=== PATIENT | male | born 1995 | race Caucasian/White ===

== ENCOUNTER 2019-02-02 16:35 | Emergency (ER) | payer BC ==
[~2019-02-02] VITALS: Ht 177.8 cm; Wt 95.3 kg
[2019-02-02 16:40] VITALS: BP 122/75
--- NOTE | 2019-02-02 17:13 | PHYS DOC ---
Past Medical History Past Medical History: No Pertinent History Past Surgical History: Appendectomy Additional Past Surgical Histo: R testicle removal, partial L testicle removal Alcohol Use: Rarely Drug Use: Marijuana Adult General Chief Complaint Chief Complaint: ABDOMINAL PAIN HPI HPI Patient is a 23 year old male who presents with Thursday began having left sided abdominal pain that went from the left side and wraps around to the lower left abdomen. Patient states it was sharp and shooting. Patient states that he still has some slight discomfort but the pain is not nearly as bad but states that the pain has moved more into the lower left abdomen now. Patient states today he began having blood in his urine with burning with urination today. Review of Systems Review of Systems Constitutional: Denies fever or chills [] GI:left sided abdominal pain, denies nausea, vomiting, bloody stools or diarrhea [] : dysuria and hematuria [] Musculoskeletal: Left back pain or joint pain [] Neurologic: Denies headache, focal weakness or sensory changes [] All other systems were reviewed and found to be within normal limits, except as documented in this note. Current Medications Current Medications Current Medications Medications (Trade) Dose Ordered Sig/Marshall Start Time Stop Time Status Last Admin Dose Admin Ketorolac Tromethamine (Toradol 30mg Vial) 30 mg 1X ONCE 02/02/19 18:00 02/02/19 18:01 DC 02/02/19 18:03 30 MG Sodium Chloride 1,000 ml @ 1,000 mls/hr Q1H 02/02/19 18:00 02/02/19 18:59 02/02/19 18:03 1,000 MLS/HR Allergies Allergies Allergies Coded Allergies Type Severity Reaction Last Updated Verified No Known Drug Allergies 02/02/19 No Physical Exam Physical Exam Constitutional: Well developed, well nourished, no acute distress, non-toxic appearance. [] Abdomen: Bowel sounds normal, soft, Left lower tenderness, no masses, no pulsatile masses. [] Skin: Warm, dry, no erythema, no rash. [] Back: No tenderness, no CVA tenderness. [] Neurologic: Alert and oriented X 3, normal motor function, normal sensory function, no focal deficits noted. [] Psychologic: Affect normal, judgement normal, mood normal. [] Current Patient Data Vital Signs Vital Signs Date Time Temp Pulse Resp B/P (MAP) Pulse Ox O2 Delivery O2 Flow Rate FiO2 9/11/19 16:40 98.5 76 16 122/75 (91) 96 Room Air 98.5 Lab Values Laboratory Tests Test 02/02/19 16:41 02/02/19 17:44 Urine Collection Type Unknown Urine Color Brown Urine Clarity Cloudy Urine pH Urine Specific [place] Urine Protein mg/dL (NEG-TRACE) Urine Glucose (UA) mg/dL (NEG) Urine Ketones (Stick) mg/dL (NEG) Urine Blood (NEG) Urine Nitrite (NEG) Urine Bilirubin (NEG) Urine Urobilinogen Dipstick mg/dL (0.2 mg/dL) Urine Leukocyte Esterase (NEG) Urine RBC Tntc /HPF (0-2) Urine WBC Occ /HPF (0-4) Urine Squamous Epithelial Cells None /LPF Urine Bacteria Few /HPF (0-FEW) Urine Mucus Marked /LPF White Blood Count 6.9 x10^3/uL (4.0-11.0) Red Blood Count 4.76 x10^6/uL (4.30-5.70) Hemoglobin 15.1 g/dL (13.0-17.5) Hematocrit 42.6 % (39.0-53.0) Mean Corpuscular Volume 90 fL (79-100) Mean Corpuscular Hemoglobin 32 pg (25-35) Mean Corpuscular Hemoglobin Concent 35 g/dL (31-37) Red Cell Distribution Width 12.5 % (11.5-14.5) Platelet Count 305 x10^3/uL (140-400) Neutrophils (%) (Auto) 62 % (31-73) Lymphocytes (%) (Auto) 27 % (24-48) Monocytes (%) (Auto) 8 % (0-9) Eosinophils (%) (Auto) 3 % (0-3) Basophils (%) (Auto) 1 % (0-3) Neutrophils # (Auto) 4.3 x10^3/uL (1.8-7.7) Lymphocytes # (Auto) 1.8 x10^3/uL (1.0-4.8) Monocytes # (Auto) 0.5 x10^3/uL (0.0-1.1) Eosinophils # (Auto) 0.2 x10^3/uL (0.0-0.7) Basophils # (Auto) 0.0 x10^3/uL (0.0-0.2) Sodium Level 143 mmol/L (136-145) Potassium Level 3.6 mmol/L (3.5-5.1) Chloride Level 106 mmol/L (98-107) Carbon Dioxide Level 26 mmol/L (21-32) Anion Gap 11 (6-14) Blood Urea Nitrogen 13 mg/dL (8-26) Creatinine 1.1 mg/dL (0.7-1.3) Estimated GFR (Cockcroft-Gault) 83.0 BUN/Creatinine Ratio 12 (6-20) Glucose Level 81 mg/dL (70-99) Calcium Level 8.9 mg/dL (8.5-10.1) Total Bilirubin 0.8 mg/dL (0.2-1.0) Aspartate Amino Transferase (AST) 30 U/L (15-37) Alanine Aminotransferase (ALT) 22 U/L (16-63) Alkaline Phosphatase 59 U/L (46-116) Total Protein 7.3 g/dL (6.4-8.2) Albumin 4.3 g/dL (3.4-5.0) Albumin/Globulin Ratio 1.4 (1.0-1.7) Laboratory Tests 02/02/19 17:44 Laboratory Tests 02/02/19 17:44 EKG EKG [] Radiology/Procedures Radiology/Procedures [] Impressions: [facility] [address] [place] [address] IMAGING REPORT Signed PATIENT: DAMON GODOY CACCOUNT: [id number] : 1995 LOCATION: ER AGE: 23 SEX: M EXAM STATUS: REG ER ORD. PHYSICIAN: PANCHITO TUCKER SENIOR HEALTH EDUCATOR REASON: left flank, side pain, hematuria PROCEDURE: CT ABDOMEN PELVIS WO CONTRAST Exam: CT abdomen and pelvis without contrast INDICATION: Left-sided flank pain TECHNIQUE: Sequential axial images through the abdomen and pelvis obtained without IV contrast. Sagittal and coronal reformatted images were reconstructed from the axial data and reviewed. Comparisons: None FINDINGS: Heart size is normal. No pericardial effusion. Visualized lung bases are clear. No pleural effusion. Evaluation of solid organs is limited secondary to noncontrast technique. Liver, spleen, pancreas, gallbladder and adrenals are unremarkable. There is mild left-sided hydronephrosis. There is a 5 mm calculus at the distal left ureter. No other renal or ureteral calculi are identified. Bladder is decompressed not well evaluated. Prostate is not enlarged. Large and small bowel are unremarkable. Appendix is not identified. No free intra-abdominal air or fluid. No obstruction. Abdominal aorta has a normal course and caliber. No enlarged abdominal lymph nodes are identified. No suspicious osseous lesion or acute fracture. IMPRESSION: A 5 mm calculus the distal left ureter with mild left-sided hydronephrosis. No other renal or ureteral calculi. Exposure: One or more of the following in the visualized dose reduction techniques were utilized for this examination: 1. Automated exposure control 2. Adjustment of the MA and/or KV according to patient size 3. Use of iterative of reconstructive technique Electronically signed by: Alie Gonsales MD (02/02/2019 6:08 PM) [facility] DICTATED and SIGNED BY: ALIE GONSALES MD DATE: 02/02/191807 Course & Med Decision Making Course & Med Decision Making Patient is a 23 year old male who presents with Thursday began having left sided abdominal pain that went from the left side and wraps around to the lower left abdomen. Patient states it was sharp and shooting. Patient states that he still has some slight discomfort but the pain is not nearly as bad but states that the pain has moved more into the lower left abdomen now. Patient states today he began having blood in his urine with burning with urination today. Abdomen is tender to left lower side. Alert and oriented. No CVA tenderness. No extremity edema. Skin pink warm and dry. Patient denies vomiting, diarrhea, fever, penile discharge, flank pain, testicular pain, nausea, shortness of air, chest pain, headache, dizziness. Ambulatory with a steady gait. Mucous membranes moist. CT ABD PELV: A 5 mm calculus the distal left ureter with mild left-sided hydronephrosis. No other renal or ureteral calculi. I have spoken to Dr Chatterjee about this patient. He states that this kidney stone may still pass and talk tot he patient about pain control. UA does not look to be infected and Dr Chatterjee agrees. Patient to follow up with Urology as soon as possible. Dragon Disclaimer Dragon Disclaimer This electronic medical record was generated, in whole or in part, using a voice recognition dictation system. Departure Departure Impression: Primary Impression: Kidney stone Disposition: 01 HOME, SELF-CARE Condition: STABLE Referrals: NO PCP (PCP) LEONARD SHIN MD Patient Instructions: Kidney Stones Additional Instructions: Call urology and follow up with urology as soon as possible. Take medications as prescribed. If you are unable to urinate and or the pain becomes too great return to the emergency room immediately. Scripts Oxycodone/Apap 5-325 (PERCOCET 5-325 MG TABLET ) 1 Each Tablet 1 TAB PO PRN Q6HRS PRN for PAIN, #12 TAB 0 Refills Prov: PANCHITO TUCKER APRN 02/02/19 Tamsulosin Hcl (FLOMAX) 0.4 Mg Cap.er.24h 1 CAP PO DAILY, #30 CAP 11 Refills Prov: PANCHITO TUCKER APRN 02/02/19 PANCHITO TUCKER APRN Feb 02, 2019 17:13
[2019-02-02 17:28] LABS: CLARITY,URINE CLOUDY
[2019-02-02 17:53] LABS: BASO % 1 % (0-3); EOS # 0.2 x10^3/uL (0.0-0.7); EOS % 3 % (0-3); HEMATOCRIT 42.6 % (39.0-53.0); HEMOGLOBIN 15.1 g/dL (13.0-17.5); LYMPH # 1.8 x10^3/uL (1.0-4.8); LYMPH % 27 % (24-48); MEAN CORPUSCULAR HEMOGLOBIN 32 pg (25-35); MEAN CORPUSCULAR HGB CONC 35 g/dL (31-37); MEAN CORPUSCULAR VOLUME 90 fL (79-100); MONO # 0.5 x10^3/uL (0.0-1.1); MONO % 8 % (0-9); NEUT # 4.3 x10^3/uL (1.8-7.7); NEUT % 62 % (31-73); PLATELET COUNT 305 x10^3/uL (140-400); RED BLOOD COUNT 4.76 x10^6/uL (4.30-5.70); RED CELL DISTRIBUTION WIDTH 12.5 % (11.5-14.5); WHITE BLOOD COUNT 6.9 x10^3/uL (4.0-11.0)
[2019-02-02 17:59] LABS: COLOR,URINE BROWN; RBC,URINE TNTC /HPF (0-2); WBC,URINE OCC /HPF (0-4)
[2019-02-02 18:00] LABS: BACTERIA,URINE FEW /HPF (0-FEW)
[2019-02-02] MEDS ORDERED: KETOROLAC 30 MG/ML VIAL. IV ONE (18:00)
[2019-02-02] MEDS ORDERED: IV NORMAL SALINE 1000ML BAG 1,000 ML IV SCH (18:00)
[2019-02-02 18:09] LABS: CALCIUM 8.9 mg/dL (8.5-10.1); CREATININE 1.1 mg/dL (0.7-1.3); POTASSIUM 3.6 mmol/L (3.5-5.1)
--- NOTE | 2019-02-02 18:11 | RAD ---
Exam: CT abdomen and pelvis without contrast INDICATION: Left-sided flank pain TECHNIQUE: Sequential axial images through the abdomen and pelvis obtained without IV contrast. Sagittal and coronal reformatted images were reconstructed from the axial data and reviewed. Comparisons: None FINDINGS: Heart size is normal. No pericardial effusion. Visualized lung bases are clear. No pleural effusion. Evaluation of solid organs is limited secondary to noncontrast technique. Liver, spleen, pancreas, gallbladder and adrenals are unremarkable. There is mild left-sided hydronephrosis. There is a 5 mm calculus at the distal left ureter. No other renal or ureteral calculi are identified. Bladder is decompressed not well evaluated. Prostate is not enlarged. Large and small bowel are unremarkable. Appendix is not identified. No free intra-abdominal air or fluid. No obstruction. Abdominal aorta has a normal course and caliber. No enlarged abdominal lymph nodes are identified. No suspicious osseous lesion or acute fracture. IMPRESSION: A 5 mm calculus the distal left ureter with mild left-sided hydronephrosis. No other renal or ureteral calculi. Exposure: One or more of the following in the visualized dose reduction techniques were utilized for this examination: 1. Automated exposure control 2. Adjustment of the MA and/or KV according to patient size 3. Use of iterative of reconstructive technique Electronically signed by: Alie Gaming MD (02/02/2019 6:08 PM) [facility]
[2019-02-02 18:13] LABS: ALBUMIN 4.3 g/dL (3.4-5.0); ALBUMIN/GLOBULIN RATIO 1.4 (1.0-1.7); TOTAL BILIRUBIN 0.8 mg/dL (0.2-1.0); TOTAL PROTEIN 7.3 g/dL (6.4-8.2)
[2019-02-02] MEDS ORDERED: TAMS0.4C97 PO (18:31)
[2019-02-02] MEDS ORDERED: OXYC1TAB15 PO (18:31)
== END 2019-02-02 18:45 | disposition home or self-care (01) ==
LOC: ER 16:35
DX: N13.2 Hydronephrosis with renal and ureteral calculous obstruction (principal); Z90.89 Acquired absence of other organs; Z98.890 Other specified postprocedural states
CPT/HCPCS: 36415; 74176; 80053; 81001; 85025; 96374; 99285; J1885; J7030